=== PATIENT | male | born 1980 | race Two or more races ===

== ENCOUNTER 2022-03-22 16:32 | Emergency (ER) | payer BC, OTHER ==
[2022-03-22] MEDS ORDERED: Ketorolac 60 MG/2 ML SDV IM ONE (17:42)
[2022-03-22] MEDS ORDERED: Acetaminophen 500 MG Tab PO ONE (17:44)
== END 2022-03-22 18:07 | disposition home or self-care (01) ==
LOC: MW.ED 16:32
DX: U07.1 COVID-19 (principal)
CPT/HCPCS: 87635; 96372; 99283; A9270; J1885; U0002